=== PATIENT | female | born 1985 | race Caucasian/White ===

== ENCOUNTER 2021-10-24 10:39 | Emergency (ER) | payer OTHER ==
[~2021-10-24] VITALS: Ht 165.1 cm; Wt 72.6 kg
[2021-10-24 11:29] VITALS: BP 127/99
== END 2021-10-24 14:13 | disposition home or self-care (01) ==
LOC: ER 10:39
DX: U07.1 COVID-19 (principal)
CPT/HCPCS: 71045-TC; 84703-TC